=== PATIENT | female | born 1995 | race Two or more races ===

== ENCOUNTER 2024-12-20 14:30 | Inpatient (IN) | payer OTHER ==
[~2024-12-20] VITALS: Ht 165.1 cm; Wt 104.3 kg
[2024-12-27] VITALS (8 sets, daily range): BP systolic 110–138; BP diastolic 51–93
[2024-12-27] MEDS ORDERED: PRENATA CHEWAB1 EACH PO (06:39)
[2024-12-27] MEDS ORDERED: RINGERS SOLUTION,LACTATED 1,000 ML IV SCH (06:45)
[2024-12-27 07:11] LABS: BASO % 0.3 % (0.1-1.2); EOS # 0.05 (0.04-0.54); EOS % 0.5 % (0.7-7.0); LYMPH # 2.25 (1.18-3.74); LYMPH % 21.2 % (19.3-53.1); MEAN PLATELET VOLUME 10.10 fl (9.4-12.4); MONO # 0.58 (0.24-0.82); MONO % 5.5 % (4.7-12.5); NEUT # 7.66 (1.56-6.13); NEUT % 72.0 % (34.0-71.1); RED CELL DISTRIBUTION WIDTH 15.7 % (11.6-14.4)
[2024-12-27] MEDS ORDERED: OXYTOCIN 20 UNITS/500ML RL PIGGYBAG IV ONE (07:14)
[2024-12-27 07:22] LABS: INR 0.99
[2024-12-27] MEDS ORDERED: OXYTOCIN 500 ML IV ONE (07:30)
[2024-12-27] MEDS ORDERED: OXYTOCIN 500 ML IV SCH (07:30)
[2024-12-27 07:36] LABS: ALT/SGPT 28.0 U/L (12-78); AST/SGOT 20.0 U/L (15-37); BILIRUBIN TOTAL 0.37 mg/dL (0.3-1.2); BUN CREA RATIO 24.0 (7.0-25.0); CREATININE SERUM 0.45 mg/dL (0.55-1.02); GFR 162.51; GLOBULINA 3.7 G/DL (2.4-3.5); GLUCOSE FASTING 83.0 mg/dL (65-100); OSMOLALITY SERUM 276.0 MOSM/KG (275-295)
[2024-12-27] MEDS ORDERED: MORPHINE SULFATE 4 MG/ML CARTRIDGE IV STA (09:00)
[2024-12-27] MEDS ORDERED: MORPHINE SULFATE 4 MG/ML CARTRIDGE IV ONE (12:30)
[2024-12-27] MEDS ORDERED: OXYTOCIN 20 UNITS/1000ML RL PIGGYBAG IV ONE (15:08)
[2024-12-27] MEDS ORDERED: ERYTHROMYCIN BASE OPHT 1GM EACH TUBE OP ONE (15:08)
[2024-12-27] MEDS ORDERED: CHLORHEXIDINE GLUCONATE 120 ML BOTTLE TOP ONE ×2 (15:09→17:45)
[2024-12-27] MEDS ORDERED: LIDOCAINE HCL 1% 10ML VIAL ONE (15:09)
[2024-12-27] MEDS ORDERED: METHYLERGONOVINE MALEATE 0.2 MG/ML AMPUL ONE (17:14)
[2024-12-27] MEDS ORDERED: CARBOPROST TROMETHAMINE 250 MCG/ML AMPUL IM ONE (17:23)
[2024-12-27] MEDS ORDERED: METHYLERGONOVINE MALEATE 0.2 MG/ML AMPUL IV STA (17:39)
[2024-12-27] MEDS ORDERED: CARBOPROST TROMETHAMINE 250 MCG/ML AMPUL IM STA (17:39)
[2024-12-27] MEDS ORDERED: OXYTOCIN 1,000 ML IV SCH (17:45)
[2024-12-28 02:30] VITALS: BP 137/81
[2024-12-28 09:12] VITALS: BP 115/74
[2024-12-28 19:51] VITALS: BP 119/79
[2024-12-29] VITALS: BP 111/80
[2024-12-29 08:22] VITALS: BP 125/74
== END 2024-12-29 12:40 | disposition home or self-care (01) | DRG 807 ==
LOC: EDUNIT# 14:30 → LDR 12-27 06:20 → OB/GYN 12-27 23:06
PROVIDERS: ADMIT Obstetrics & Gynecology; ATTEND Obstetrics & Gynecology
PROC: 10E0XZZ Delivery of Products of Conception, External Approach (ICD-10-PCS; principal; 2024-12-27)
PROC: 0UQG7ZZ Repair Vagina, Via Natural or Artificial Opening (ICD-10-PCS; 2024-12-27)
PROC: 0W8NXZZ Division of Female Perineum, External Approach (ICD-10-PCS; 2024-12-27)
PROC: 4A1HXCZ Monitoring of Products of Conception, Cardiac Rate, External Approach (ICD-10-PCS; 2024-12-27)
DX: O71.4 Obstetric high vaginal laceration alone (principal); Z37.0 Single live birth; Z3A.39 39 weeks gestation of pregnancy